=== PATIENT | male | born 1965 ===

== ENCOUNTER 2021-09-03 10:08 | Day surgery (SDC) | payer OTHER, SELFPAY ==
[~2021-09-03] VITALS: Ht 170.2 cm; Wt 65.8 kg
[2021-09-03] MEDS ORDERED: diphenhydrAMINE 50 MG/ML VIAL ONE (10:50)
[2021-09-03] MEDS ORDERED: fentaNYL citrate 0.05 MG/ML VIAL ONE (10:50)
[2021-09-03] MEDS ORDERED: MIDAZOLAM 2 MG/2 ML VIAL ONE ×2 (10:51)
[2021-09-03] MEDS ORDERED: fentaNYL citrate 0.05 MG/ML VIAL IVP ONE (12:30)
[2021-09-03] MEDS ORDERED: MIDAZOLAM 2 MG/2 ML VIAL IVP ONE (12:30)
[2021-09-03] MEDS ORDERED: diphenhydrAMINE 50 MG/ML VIAL IVP ONE (12:30)
== END 2021-09-03 12:13 | disposition home or self-care (01) ==
LOC: MDS 10:08 → MMU 10:09 → MDS 12:13
PROVIDERS: ATTEND Internal Medicine Gastroenterology
DX: R13.10 Dysphagia, unspecified (principal); K29.50 Unspecified chronic gastritis without bleeding; K21.9 Gastro-esophageal reflux disease without esophagitis; E11.9 Type 2 diabetes mellitus without complications; E78.00 Pure hypercholesterolemia, unspecified; Z79.899 Other long term (current) drug therapy; Z20.822 Contact with and (suspected) exposure to COVID-19
CPT/HCPCS: 43239; 82948; 87426; J1200; J2250; J3010; 88305; 88312; 88313; 88342